=== PATIENT | female | born 1955 | race Native Hawaiian/Other Pacific Islander ===

== ENCOUNTER 2019-09-14 18:03 | Observation (INO) | payer MEDICARE ==
[2019-09-14] MEDS ORDERED: Sodium Chloride 0.9% 1000 ML 1,000 ML IV STA (18:17)
[2019-09-14] MEDS ORDERED: MORPHINE SULFATE 4 MG INJ IV ONE (18:17)
[2019-09-14] MEDS ORDERED: Zofran 4 MG/2 ML VIAL IV ONE (18:17)
[2019-09-14] MEDS ORDERED: TORAdol 30 mg Injection IV ONE (18:17)
[2019-09-14] MEDS ORDERED: TORAdol 30 mg Injection ONE (18:39)
[2019-09-14] MEDS ORDERED: Sodium Chloride 0.9% 1000 ML 1,000 ML ONE (18:39)
[2019-09-14] MEDS ORDERED: MORPHINE SULFATE 4 MG INJ ONE (18:39)
[2019-09-14] MEDS ORDERED: Zofran 4 MG/2 ML VIAL ONE (18:39)
[2019-09-14 18:54] LABS: Absolute Neutrophil Ct (ANC) 5.43 (1.4-6.9); Basophil (Absolute #) 0 (0-0.4); Eosinophil % 0.2 % (0.00-5.0); Eosinophil (Absolute #) 0.01 (0-0.5); Hematocrit 42.4 % (35-47); Hemoglobin 13.9 gm/dl (12.0-16.0); Lymphocyte (Absolute #) 0.14 (1.0-4.6); Lymphocytes % 2.5 % (24.0-44.0); Mean Cell Volume 87.4 fl (78-100); Mean Corpuscular Hemoglobin 28.7 pg (26-32); Mean Corpuscular Hgb Concent. 32.8 g/dl (32-36); Mean Platelet Volume 12.2 fl (6-9.5); Monocyte (Absolute #) 0.03 (0.0-1.3); Monocytes % 0.5 % (0.0-12.0); Neutrophil % 96.8 % (36.0-66.0); Platelet Count 140 K/mm3 (150-450); Red Blood Count 4.85 M/mm3 (4.1-5.4); White Blood Count 5.6 K/mm3 (4.0-10.5)
[2019-09-14 19:02] LABS: Lactic Acid 2.5 (0.4-2.0)
[2019-09-14 19:06] LABS: ALBUMIN 4.1 g/dL (3.5-5.0); ALKALINE PHOSPHATASE 67 U/L (38-126); ANION GAP 11.4 MEQ/L (5-15); BLOOD UREA NITROGEN 25 mg/dL (7-17); CHLORIDE 107 mmol/L (98-107); Calcium 10.1 mg/dL (8.4-10.2); Carbon Dioxide 27 mmol/L (22-30); Glucose 156 mg/dL (74-106); LIPASE 51 U/L (23-300); Potassium 4.1 mmol/L (3.5-5.1); SGOT/AST 29 U/L (14-36); SGPT/ALT 19 U/L (0-35); SODIUM 141 mmol/L (137-145); Total Protein 7.1 g/dL (6.3-8.2)
[2019-09-14 20:18] LABS: Appearance CLOUDY (CLEAR); Bacteria RARE /HPF (NEGATIVE); Bilirubin NEGATIVE (NEGATIVE); Blood LARGE Ery/ul (0-5); Epithelial Cells RARE /HPF (FEW); Glucose NEGATIVE (NEGATIVE); Ketones SMALL (NEGATIVE); Leukocyte Esterase MODERATE (NEGATIVE); Mucus SLIGHT /HPF (NEGATIVE); Nitrite POSITIVE (NEGATIVE); Protein,Urine Dip 30 (Negative); Specific Gravity 1.036 (1.005-1.025); Urobilinogen NEGATIVE mg/dL (0-1); WBC >100 /HPF (0-5)
[2019-09-14 20:46] LABS: Budding Yeast Many /HPF (NEGATIVE); RBC >101 /HPF (0-2)
[2019-09-14] MEDS ORDERED: ROCEPHIN 2 Gm-D5w 50ML BAG** 2 G/50 ML IVPB IV STA (21:11)
--- NOTE | 2019-09-14 21:12 | ERPHSYRPT ---
- History of Present Illness Time Seen by Provider: 09/14/19 18:08 Patient Subjective Stated Complaint: Pt woke this morning and had blood in her urine, went to hospital in [place] and had a CT scan done and was found to have a mass on her left kidney compatible with renal cell carcinoma, pt was given pain meds and all her records were sent to [place] and was told that if she was in pain again to go to [facility], she began having pain and attempted to drive to [facility] from [place] but began having 10/10 pain and came to this ER instead Triage Nursing Assessment: Pt was brought from EMS, hypertensive with no history , pain was a 10/10 in ambulance but was given Morphine and it is now a 5/10, pulses normal, pt states that she is unable to urinate since 1500, no edema, lungs clear, pt is resting with eyes closed at this time Physician History: Left flank pain. Worsening this afternoon. Location: left flank pain Quality: sharp Radiation: none Severity: moderate Duration: worse today Timing: suddenly Modifying factors/associated signs and symptoms: recently dx with renal cell carcinoma Allergies/Adverse Reactions: No Known Drug Allergies Allergy (Verified 09/14/19 18:29) Home Medications: Glipizide [Glipizide Xl] 5 mg PO DAILY 09/14/19 [History] Lisinopril 10 mg [Zestril 10 MG] 10 mg PO DAILY 09/14/19 [History] Lovastatin 10 mg PO DAILY 09/14/19 [History] Metformin HCl 500 mg [Glucophage 500 MG] 500 mg PO BIDWM 09/14/19 [History ] Morphine Sulfate Ir 15 mg [Msir 15 mg] 0.5 - 1 tab PO Q6H PRN 09/14/19 [ History] Ondansetron [Ondansetron Odt] 4 mg PO Q8H PRN 09/14/19 [History] - Review of Systems Constitutional: No Fever, No Chills Eyes: No Symptoms Ears, Nose, & Throat: No Symptoms Respiratory: No Cough, No Dyspnea Cardiac: No Chest Pain, No Edema, No Syncope Abdominal/Gastrointestinal: Abdominal Pain, No Nausea, No Vomiting, No Diarrhea Genitourinary Symptoms: No Dysuria Musculoskeletal: No Back Pain, No Neck Pain Skin: No Rash Neurological: No Dizziness, No Focal Weakness, No Sensory Changes Psychological: No Symptoms Endocrine: No Symptoms All Other Systems: Reviewed and Negative - Past Medical History Cardiac History: High Cholesterol Endocrine Medical History: Diabetes Type II - Past Surgical History Past Surgical History: No - Social History Smoking Status: Never smoker Exposure to second hand smoke: No Drug Use: none Patient Lives Alone: No - Female History Hx Now: No - Nursing Vital Signs Nursing Vital Signs: Initial Vital Signs Temperature 97.4 F 09/14/19 18:05 Pulse Rate 101 H 09/14/19 18:05 Blood Pressure 207/113 09/14/19 18:05 O2 Sat by Pulse Oximetry 97 09/14/19 18:05 Pain Scale Pain Intensity [Right Lower 5 Abdomen] Pain Intensity 3 - Physical Exam General Appearance: no apparent distress, alert Eye Exam: PERRL/EOMI, eyes nml inspection Ears, Nose, Throat Exam: normal ENT inspection, pharynx normal, moist mucous membranes Neck Exam: normal inspection, non-tender, supple, full range of motion Respiratory Exam: normal breath sounds, lungs clear, No respiratory distress Cardiovascular Exam: regular rate/rhythm, normal heart sounds Gastrointestinal/Abdomen Exam: soft, other (no obvious mass or tenderness ), No tenderness, No mass Back Exam: normal inspection, normal range of motion, No CVA tenderness, No vertebral tenderness Extremity Exam: normal inspection, normal range of motion, pelvis stable Neurologic Exam: alert, oriented x 3, cooperative, normal mood/affect, nml cerebellar function, sensation nml, No motor deficits Skin Exam: normal color, warm, dry SpO2: 96 - Course Nursing assessment & vital signs reviewed: Yes Ordered Tests: Active Orders 24 hr Category Date Time Status IV Insertion STAT Care 09/14/19 18:17 Active CBC W DIFF Stat Lab 09/14/19 18:57 Completed CMP Stat Lab 09/14/19 18:57 Completed CULTURE,URINE Stat Lab 09/14/19 20:02 Received LIPASE Stat Lab 09/14/19 18:57 Completed Lactic Acid Stat Lab 09/14/19 18:51 Completed Lactic Acid Stat Lab 09/14/19 20:59 Ordered UA W/RFX UR CULTURE Stat Lab 09/14/19 20:02 Completed Transfer Order Routine Transfer 09/14/19 Ordered Medication Summary Generic Name Dose Route Start Last Admin Trade Name Freq PRN Reason Stop Dose Admin Ceftriaxone Sodium/Dextrose 2 g in 50 mls @ 100 mls/hr 09/14/19 21:11 Rocephin 2 Gm-D5w 50ml Bag IV 09/14/19 21:40 STAT STA Discontinued Medications Generic Name Dose Route Start Last Admin Trade Name Liset PRN Reason Stop Dose Admin Sodium Chloride 1,000 mls @ 999 mls/hr 09/14/19 18:17 09/14/19 20:00 Sodium Chloride 0.9% 1000 Ml IV 09/14/19 19:17 Infused .Q1H1M STA Infusion Sodium Chloride Confirm 09/14/19 18:39 Sodium Chloride 0.9% 1000 Ml Administered 09/14/19 18:40 Dose 1,000 mls @ ud .ROUTE .STK-MED ONE Ketorolac Tromethamine 30 mg 09/14/19 18:17 09/14/19 18:43 Toradol 30 Mg Injection IV 09/14/19 18:18 30 mg STAT ONE Administration Ketorolac Tromethamine Confirm 09/14/19 18:39 Toradol 30 Mg Injection Administered 09/14/19 18:40 Dose 30 mg .ROUTE .STK-MED ONE Morphine Sulfate 4 mg 09/14/19 18:17 09/14/19 18:42 Morphine Sulfate 4 Mg Inj IV 09/14/19 18:18 4 mg STAT ONE Administration Morphine Sulfate Confirm 09/14/19 18:39 Morphine Sulfate 4 Mg Inj Administered 09/14/19 18:40 Dose 4 mg .ROUTE .STK-MED ONE Ondansetron HCl 4 mg 09/14/19 18:17 09/14/19 18:43 Zofran 4 Mg/2 Ml Vial IV 09/14/19 18:18 4 mg STAT ONE Administration Ondansetron HCl Confirm 09/14/19 18:39 Zofran 4 Mg/2 Ml Vial Administered 09/14/19 18:40 Dose 4 mg .ROUTE .STK-MED ONE Lab/Rad Data: Laboratory Result Diagrams 09/14/19 18:57 09/14/19 18:57 Laboratory Results 09/14/19 09/14/19 09/14/19 Range/Units 20:02 18:57 18:57 WBC 5.6 (4.0-10.5) K/mm3 RBC 4.85 (4.1-5.4) M/mm3 Hgb 13.9 (12.0-16.0) gm/dl Hct 42.4 (35-47) % MCV 87.4 (78-100) fl MCH 28.7 (26-32) pg MCHC 32.8 (32-36) g/dl RDW 15.0 H (11.5-14.0) % Plt Count 140 L (150-450) K/mm3 MPV 12.2 H (6-9.5) fl Gran % 96.8 H (36.0-66.0) % Eos # (Auto) 0.01 (0-0.5) Absolute Lymphs (auto) 0.14 L (1.0-4.6) Absolute Monos (auto) 0.03 (0.0-1.3) Lymphocytes % 2.5 L (24.0-44.0) % Monocytes % 0.5 (0.0-12.0) % Eosinophils % 0.2 (0.00-5.0) % Basophils % 0.0 (0.0-0.4) % Absolute Granulocytes 5.43 (1.4-6.9) Basophils # 0 (0-0.4) Sodium 141 (137-145) mmol/L Potassium 4.1 (3.5-5.1) mmol/L Chloride 107 (98-107) mmol/L Carbon Dioxide 27 (22-30) mmol/L Anion Gap 11.4 (5-15) MEQ/L BUN 25 H (7-17) mg/dL Creatinine 0.80 (0.52-1.04) mg/dL Estimated GFR > 60.0 ML/MIN Glucose 156 H (74-106) mg/dL Lactic Acid (0.4-2.0) Calcium 10.1 (8.4-10.2) mg/dL Total Bilirubin 0.70 (0.2-1.3) mg/dL AST 29 (14-36) U/L ALT 19 (0-35) U/L Alkaline Phosphatase 67 (38-126) U/L Serum Total Protein 7.1 (6.3-8.2) g/dL Albumin 4.1 (3.5-5.0) g/dL Lipase 51 (23-300) U/L Urine Color YELLOW (YELLOW) Urine Appearance CLOUDY (CLEAR) Urine pH 5.0 (5-6) Ur Specific [place] 1.036 (1.005-1.025) Urine Protein 30 (Negative) Urine Ketones SMALL (NEGATIVE) Urine Blood LARGE (0-5) [place]/ul Urine Nitrite POSITIVE (NEGATIVE) Urine Bilirubin NEGATIVE (NEGATIVE) Urine Urobilinogen NEGATIVE (0-1) mg/dL Ur Leukocyte Esterase MODERATE (NEGATIVE) Urine WBC (Auto) >100 (0-5) /HPF Urine RBC (Auto) >101 (0-2) /HPF U Epithel Cells (Auto) RARE (FEW) /HPF Urine Bacteria (Auto) RARE (NEGATIVE) /HPF Urine Mucus (Auto) SLIGHT (NEGATIVE) /HPF Urine Yeast (Budding) Many (NEGATIVE) /HPF Urine Culture Reflexed YES (NO) Urine Glucose NEGATIVE (NEGATIVE) mg/dL 09/14/19 Range/Units 18:51 WBC (4.0-10.5) K/mm3 RBC (4.1-5.4) M/mm3 Hgb (12.0-16.0) gm/dl Hct (35-47) % MCV (78-100) fl MCH (26-32) pg MCHC (32-36) g/dl RDW (11.5-14.0) % Plt Count (150-450) K/mm3 MPV (6-9.5) fl Gran % (36.0-66.0) % Eos # (Auto) (0-0.5) Absolute Lymphs (auto) (1.0-4.6) Absolute Monos (auto) (0.0-1.3) Lymphocytes % (24.0-44.0) % Monocytes % (0.0-12.0) % Eosinophils % (0.00-5.0) % Basophils % (0.0-0.4) % Absolute Granulocytes (1.4-6.9) Basophils # (0-0.4) Sodium (137-145) mmol/L Potassium (3.5-5.1) mmol/L Chloride (98-107) mmol/L Carbon Dioxide (22-30) mmol/L Anion Gap (5-15) MEQ/L BUN (7-17) mg/dL Creatinine (0.52-1.04) mg/dL Estimated GFR ML/MIN Glucose (74-106) mg/dL Lactic Acid 2.5 H (0.4-2.0) Calcium (8.4-10.2) mg/dL Total Bilirubin (0.2-1.3) mg/dL AST (14-36) U/L ALT (0-35) U/L Alkaline Phosphatase (38-126) U/L Serum Total Protein (6.3-8.2) g/dL Albumin (3.5-5.0) g/dL Lipase (23-300) U/L Urine Color (YELLOW) Urine Appearance (CLEAR) Urine pH (5-6) Ur Specific [place] (1.005-1.025) Urine Protein (Negative) Urine Ketones (NEGATIVE) Urine Blood (0-5) [place]/ul Urine Nitrite (NEGATIVE) Urine Bilirubin (NEGATIVE) Urine Urobilinogen (0-1) mg/dL Ur Leukocyte Esterase (NEGATIVE) Urine WBC (Auto) (0-5) /HPF Urine RBC (Auto) (0-2) /HPF U Epithel Cells (Auto) (FEW) /HPF Urine Bacteria (Auto) (NEGATIVE) /HPF Urine Mucus (Auto) (NEGATIVE) /HPF Urine Yeast (Budding) (NEGATIVE) /HPF Urine Culture Reflexed (NO) Urine Glucose (NEGATIVE) mg/dL - Progress Progress: improved Progress Note: 09/14/19 21:17 Patient has probably new renal cell carcinoma. Patient's pain improved here in the ER. She does have a UTI. We will give first dose of ceftriaxone here in the ER. I discussed with Dr. Sharma. She will admit to her service for UTI and pain control Discussed with .: Tasha Will see patient in: hospital (observation) Counseled pt/family regarding: lab results, diagnosis, need for follow-up - Departure Departure Disposition: Observation Clinical Impression: UTI (urinary tract infection) Condition: Stable Critical Care Time: No Referrals: DAKSHA BAKER JR [Primary Care Provider] -
[2019-09-14] MEDS ORDERED: TORAdol 30 mg Injection IV PRN (22:07)
[2019-09-14] MEDS: Sodium Chloride 0.9% 1000 ML 1,000 ML IV SCH (22:36)
[2019-09-14] MEDS: MORPHINE SULFATE 4 MG INJ IV PRN (22:42)
[2019-09-15 00:16] LABS: Slide Review 1 YES
[2019-09-15 05:11] LABS: ALBUMIN 3.3 g/dL (3.5-5.0); ANION GAP 10.7 MEQ/L (5-15); BILIRUBIN,TOTAL 0.4 mg/dL (0.2-1.3); Calcium 9.3 mg/dL (8.4-10.2); Potassium 3.8 mmol/L (3.5-5.1)
[2019-09-15 05:12] LABS: Hematocrit 37.7 % (35-47); Hemoglobin 12.4 gm/dl (12.0-16.0); Mean Cell Volume 88.9 fl (78-100); Mean Corpuscular Hemoglobin 29.2 pg (26-32); Mean Corpuscular Hgb Concent. 32.9 g/dl (32-36); Mean Platelet Volume 12.9 fl (6-9.5); Platelet Count 137 K/mm3 (150-450); Red Blood Count 4.24 M/mm3 (4.1-5.4); Red Cell Distribution Width 15.6 % (11.5-14.0); White Blood Count 23.5 K/mm3 (4.0-10.5)
[2019-09-15] MEDS: MORPHINE SULFATE 4 MG INJ IV PRN ×3 (07:58→19:39)
[2019-09-15] MEDS: Zofran 4 MG/2 ML VIAL IV PRN ×2 (08:05→19:56)
[2019-09-15 08:13] LABS: BAND 20 % (0.0-2.0); Lymphocytes 2 % (24-44); Monocyte 2 % (0.0-12.0); Neutrophils 76 % (36.0-66.0); Total Cells Counted 100
[2019-09-15 08:17] LABS: Platelet Estimate DECREASED (NORMAL); Polychromasia 1+; Toxic Granulation 1+
[2019-09-15] MEDS: Sodium Chloride 0.9% 1000 ML 1,000 ML IV SCH (09:28)
[2019-09-15] MEDS ORDERED: ROCEPHIN 2 Gm-D5w 50ML BAG** 2 G/50 ML IVPB IV ONE (09:45)
[2019-09-15] MEDS ORDERED: PHENERGAN 25 MG PO PRN (09:59)
[2019-09-15] MEDS ORDERED: Sodium Chloride 0.9% W/ 20 mEq KCl/LITER 1,000 ML IV SCH (10:15)
[2019-09-15] MEDS ORDERED: NovoLOG Insulin SQ PRN (10:24)
[2019-09-15] MEDS ORDERED: ROCEPHIN 1 Gm-D5w 50 ml Bag** 1 G/50 ML IVPB IV SCH (10:30)
--- NOTE | 2019-09-15 15:26 | PCM.SSS ---
History of Present Illness - Chief Complaint Chief Complaint: UTI; Acute Pain History of Present Illness: is a 64 year old female who was admitted from ER for pain control. She was on her way from [facility] ER where she was found to have left renal mass and blood clot in ureter .She was is too much pain to ride all the way to [place]. - Review of Systems Constitutional: Fatigue Ears, Nose, & Throat: No Symptoms Respiratory: No Symptoms Cardiac: No Symptoms Abdominal/Gastrointestinal: Abdominal Pain, Other (LLQ L flank) Genitourinary Symptoms: Hematuria Neurological: No Symptoms Psychological: No Symptoms Endocrine: Other (DM2) Medications & Allergies Home Medications: Home Medication List Glipizide [Glipizide Xl] 5 mg PO DAILY 09/14/19 [History Confirmed 09/14/19] Lisinopril 10 mg [Zestril 10 MG] 10 mg PO DAILY 09/14/19 [History Confirmed 09/14/19] Lovastatin 10 mg PO HS 09/14/19 [History Confirmed 09/14/19] Metformin HCl 500 mg [Glucophage 500 MG] 500 mg PO BIDWM 09/14/19 [ History Confirmed 09/14/19] Morphine Sulfate Ir 15 mg [Msir 15 mg] 0.5 - 1 tab PO Q6H PRN 09/14/19 [ History Confirmed 09/14/19] Ondansetron [Ondansetron Odt] 4 mg PO Q8H PRN 09/14/19 [History Confirmed ] Allergies/Adverse Reactions: Allergies Allergy/AdvReac Type Severity Reaction Status Date / Time No Known Drug Allergies Allergy Verified 09/14/19 18:29 - Past Medical History Past Medical History: Yes Neurological History: No Pertinent History ENT History: No Pertinent History Cardiac History: No Pertinent History Respiratory History: No Pertinent History Endocrine Medical History: Diabetes Type II Musculoskelatal History: Arthritis GI Medical History: No Pertinent History History: Other Pyscho-Social History: No Pertinent History Reproductive Disorders: No Pertinent History Comment: lt kidney tumor present - Female History Are you now?: No - Past Surgical History Past Surgical History: No - Social History Smoking Status: Never smoker Exposure to second hand smoke: No Alcohol: None Drug Use: none - Physical Exam Vital Signs: Vital Signs - 24 hr Temp Pulse Resp BP Pulse Ox 09/15/19 12:48 99 09/15/19 12:00 99.4 F 83 18 135/60 94 L 09/15/19 08:00 97.3 F 81 19 128/60 99 09/15/19 04:00 98 F 78 18 123/57 93 L 09/14/19 22:41 97.4 F 80 16 113/55 96 09/14/19 21:18 96 09/14/19 20:40 83 17 119/58 96 09/14/19 19:50 84 18 143/70 96 09/14/19 19:34 87 18 158/80 94 L 09/14/19 18:05 97.4 F 101 H 207/113 97 Oxygen-Last 24 hours O2 Percentage 3 Liters = 32% O2 Percentage 3 Liters = 32% O2 Percentage 3 Liters = 32% General Appearance: moderate distress (left flank pain releived with Morphine for about 2 hours) Neurologic Exam: alert, oriented x 3, cooperative Ears, Nose, Throat Exam: normal ENT inspection Neck Exam: normal inspection Respiratory Exam: normal breath sounds Cardiovascular Exam: regular rate/rhythm Gastrointestinal/Abdomen Exam: soft, normal bowel sounds, tenderness (LLQ left flank left CVA), guarding Pelvic Exam: not done Rectal Exam: deferred Extremity Exam: normal inspection Skin Exam: normal color, warm (moist forehead) Results - Labs Lab/Micro Results: Lab Results-Last 24 Hours 09/14/19 09/14/19 09/14/19 Range/Units 18:51 18:57 18:57 WBC 5.6 (4.0-10.5) K/mm3 RBC 4.85 (4.1-5.4) M/mm3 Hgb 13.9 (12.0-16.0) gm/dl Hct 42.4 (35-47) % MCV 87.4 (78-100) fl MCH 28.7 (26-32) pg MCHC 32.8 (32-36) g/dl RDW 15.0 H (11.5-14.0) % Plt Count 140 L (150-450) K/mm3 MPV 12.2 H (6-9.5) fl Gran % 96.8 H (36.0-66.0) % Eos # (Auto) 0.01 (0-0.5) Absolute Lymphs (auto) 0.14 L (1.0-4.6) Absolute Monos (auto) 0.03 (0.0-1.3) Lymphocytes % 2.5 L (24.0-44.0) % Monocytes % 0.5 (0.0-12.0) % Eosinophils % 0.2 (0.00-5.0) % Basophils % 0.0 (0.0-0.4) % Absolute Granulocytes 5.43 (1.4-6.9) Segmented Neutrophils (36.0-66.0) % Band Neutrophils (0.0-2.0) % Lymphocytes (Manual) (24-44) % Monocytes (Manual) (0.0-12.0) % Basophils # 0 (0-0.4) Toxic Granulation Platelet Estimate (NORMAL) RBC Morphology Polychromasia Sodium 141 (137-145) mmol/L Potassium 4.1 (3.5-5.1) mmol/L Chloride 107 (98-107) mmol/L Carbon Dioxide 27 (22-30) mmol/L Anion Gap 11.4 (5-15) MEQ/L BUN 25 H (7-17) mg/dL Creatinine 0.80 (0.52-1.04) mg/dL Estimated GFR > 60.0 ML/MIN Glucose 156 H (74-106) mg/dL Lactic Acid 2.5 H (0.4-2.0) Calcium 10.1 (8.4-10.2) mg/dL Total Bilirubin 0.70 (0.2-1.3) mg/dL AST 29 (14-36) U/L ALT 19 (0-35) U/L Alkaline Phosphatase 67 (38-126) U/L Serum Total Protein 7.1 (6.3-8.2) g/dL Albumin 4.1 (3.5-5.0) g/dL Lipase 51 (23-300) U/L Urine Color (YELLOW) Urine Appearance (CLEAR) Urine pH (5-6) Ur Specific Dale (1.005-1.025) Urine Protein (Negative) Urine Ketones (NEGATIVE) Urine Blood (0-5) Braeden/ul Urine Nitrite (NEGATIVE) Urine Bilirubin (NEGATIVE) Urine Urobilinogen (0-1) mg/dL Ur Leukocyte Esterase (NEGATIVE) Urine WBC (Auto) (0-5) /HPF Urine RBC (Auto) (0-2) /HPF U Epithel Cells (Auto) (FEW) /HPF Urine Bacteria (Auto) (NEGATIVE) /HPF Urine Mucus (Auto) (NEGATIVE) /HPF Urine Yeast (Budding) (NEGATIVE) /HPF Urine Culture Reflexed (NO) Urine Glucose (NEGATIVE) mg/dL Slides for Path Review YES 09/14/19 09/15/19 09/15/19 Range/Units 20:02 04:54 05:00 WBC 23.5 H (4.0-10.5) K/mm3 RBC 4.24 (4.1-5.4) M/mm3 Hgb 12.4 (12.0-16.0) gm/dl Hct 37.7 (35-47) % MCV 88.9 (78-100) fl MCH 29.2 (26-32) pg MCHC 32.9 (32-36) g/dl RDW 15.6 H (11.5-14.0) % Plt Count 137 L (150-450) K/mm3 MPV 12.9 H (6-9.5) fl Gran % (36.0-66.0) % Eos # (Auto) (0-0.5) Absolute Lymphs (auto) (1.0-4.6) Absolute Monos (auto) (0.0-1.3) Lymphocytes % (24.0-44.0) % Monocytes % (0.0-12.0) % Eosinophils % (0.00-5.0) % Basophils % (0.0-0.4) % Absolute Granulocytes (1.4-6.9) Segmented Neutrophils 76 H (36.0-66.0) % Band Neutrophils 20 H (0.0-2.0) % Lymphocytes (Manual) 2 L (24-44) % Monocytes (Manual) 2 (0.0-12.0) % Basophils # (0-0.4) Toxic Granulation 1+ Platelet Estimate DECREASED (NORMAL) RBC Morphology ABNORMAL Polychromasia 1+ Sodium (137-145) mmol/L Potassium (3.5-5.1) mmol/L Chloride (98-107) mmol/L Carbon Dioxide (22-30) mmol/L Anion Gap (5-15) MEQ/L BUN (7-17) mg/dL Creatinine (0.52-1.04) mg/dL Estimated GFR ML/MIN Glucose (74-106) mg/dL Lactic Acid 1.4 (0.4-2.0) Calcium (8.4-10.2) mg/dL Total Bilirubin (0.2-1.3) mg/dL AST (14-36) U/L ALT (0-35) U/L Alkaline Phosphatase (38-126) U/L Serum Total Protein (6.3-8.2) g/dL Albumin (3.5-5.0) g/dL Lipase (23-300) U/L Urine Color YELLOW (YELLOW) Urine Appearance CLOUDY (CLEAR) Urine pH 5.0 (5-6) Ur Specific Dale 1.036 (1.005-1.025) Urine Protein 30 (Negative) Urine Ketones SMALL (NEGATIVE) Urine Blood LARGE (0-5) Braeden/ul Urine Nitrite POSITIVE (NEGATIVE) Urine Bilirubin NEGATIVE (NEGATIVE) Urine Urobilinogen NEGATIVE (0-1) mg/dL Ur Leukocyte Esterase MODERATE (NEGATIVE) Urine WBC (Auto) >100 (0-5) /HPF Urine RBC (Auto) >101 (0-2) /HPF U Epithel Cells (Auto) RARE (FEW) /HPF Urine Bacteria (Auto) RARE (NEGATIVE) /HPF Urine Mucus (Auto) SLIGHT (NEGATIVE) /HPF Urine Yeast (Budding) Many (NEGATIVE) /HPF Urine Culture Reflexed YES (NO) Urine Glucose NEGATIVE (NEGATIVE) mg/dL Slides for Path Review 09/15/19 Range/Units 05:00 WBC (4.0-10.5) K/mm3 RBC (4.1-5.4) M/mm3 Hgb (12.0-16.0) gm/dl Hct (35-47) % MCV (78-100) fl MCH (26-32) pg MCHC (32-36) g/dl RDW (11.5-14.0) % Plt Count (150-450) K/mm3 MPV (6-9.5) fl Gran % (36.0-66.0) % Eos # (Auto) (0-0.5) Absolute Lymphs (auto) (1.0-4.6) Absolute Monos (auto) (0.0-1.3) Lymphocytes % (24.0-44.0) % Monocytes % (0.0-12.0) % Eosinophils % (0.00-5.0) % Basophils % (0.0-0.4) % Absolute Granulocytes (1.4-6.9) Segmented Neutrophils (36.0-66.0) % Band Neutrophils (0.0-2.0) % Lymphocytes (Manual) (24-44) % Monocytes (Manual) (0.0-12.0) % Basophils # (0-0.4) Toxic Granulation Platelet Estimate (NORMAL) RBC Morphology Polychromasia Sodium 143 (137-145) mmol/L Potassium 3.8 (3.5-5.1) mmol/L Chloride 109 H (98-107) mmol/L Carbon Dioxide 26 (22-30) mmol/L Anion Gap 10.7 (5-15) MEQ/L BUN 29 H (7-17) mg/dL Creatinine 1.00 (0.52-1.04) mg/dL Estimated GFR 59.0 ML/MIN Glucose 174 H (74-106) mg/dL Lactic Acid (0.4-2.0) Calcium 9.3 (8.4-10.2) mg/dL Total Bilirubin 0.40 (0.2-1.3) mg/dL AST 26 (14-36) U/L ALT 16 (0-35) U/L Alkaline Phosphatase 45 (38-126) U/L Serum Total Protein 6.0 L (6.3-8.2) g/dL Albumin 3.3 L (3.5-5.0) g/dL Lipase (23-300) U/L Urine Color (YELLOW) Urine Appearance (CLEAR) Urine pH (5-6) Ur Specific Dale (1.005-1.025) Urine Protein (Negative) Urine Ketones (NEGATIVE) Urine Blood (0-5) Braeden/ul Urine Nitrite (NEGATIVE) Urine Bilirubin (NEGATIVE) Urine Urobilinogen (0-1) mg/dL Ur Leukocyte Esterase (NEGATIVE) Urine WBC (Auto) (0-5) /HPF Urine RBC (Auto) (0-2) /HPF U Epithel Cells (Auto) (FEW) /HPF Urine Bacteria (Auto) (NEGATIVE) /HPF Urine Mucus (Auto) (NEGATIVE) /HPF Urine Yeast (Budding) (NEGATIVE) /HPF Urine Culture Reflexed (NO) Urine Glucose (NEGATIVE) mg/dL Slides for Path Review - Other Procedures and Tests Respiratory Therapy 09/15/19 12:47 Oxygen Nasal Cannula 3 lpm Assessment/Plan (1) Acute flank pain Current Visit: Yes Status: Acute Assessment & Plan: clot in left ureter Code(s): R10.9 - UNSPECIFIED ABDOMINAL PAIN (2) Pyelonephritis of left kidney Current Visit: Yes Status: Acute Assessment & Plan: urine culture and blood cultures pending, IV Rocephin given 1 dose Code(s): N12 - TUBULO-INTERSTITIAL NEPHRITIS, NOT SPCF ACUTE OR CHRONIC Hospital Summary - Hospital Course Hospital Course: Patient was admitted for pain control after Dg left renal mass and blood clot in left ureter at [facility] ,[place], [place].AM labs showed significant elevation WBC. Blood cultures were drawn prior to giving Rocephin,urine cultures pending. Dr Tracy Waters Urologist accepted transfer to [facility]. Patient has had ice chips this morning but is NPO for possible stent on arrival per Dr Waters. - Vitals & Intake/Output Vital Signs: Vital Signs Temperature 99.4 F 09/15/19 12:00 Pulse Rate 83 09/15/19 12:00 Respiratory Rate 18 09/15/19 12:00 Blood Pressure 135/60 09/15/19 12:00 O2 Sat by Pulse Oximetry 99 09/15/19 12:48 Oxygen-Last Documented O2 Percentage 3 Liters = 32% Intake & Output: Intake & Output 09/13/19 09/14/19 09/15/19 09/16/19 11:59 11:59 11:59 11:59 Intake Total 854 Output Total 150 Balance 704 Weight 101.5 kg - Lab Result Diagrams: 09/15/19 05:00 09/15/19 05:00 Lab Results-Last 24 Hrs: Lab Results-Last 24 Hours 09/14/19 09/14/19 09/14/19 Range/Units 18:51 18:57 18:57 WBC 5.6 (4.0-10.5) K/mm3 RBC 4.85 (4.1-5.4) M/mm3 Hgb 13.9 (12.0-16.0) gm/dl Hct 42.4 (35-47) % MCV 87.4 (78-100) fl MCH 28.7 (26-32) pg MCHC 32.8 (32-36) g/dl RDW 15.0 H (11.5-14.0) % Plt Count 140 L (150-450) K/mm3 MPV 12.2 H (6-9.5) fl Gran % 96.8 H (36.0-66.0) % Eos # (Auto) 0.01 (0-0.5) Absolute Lymphs (auto) 0.14 L (1.0-4.6) Absolute Monos (auto) 0.03 (0.0-1.3) Lymphocytes % 2.5 L (24.0-44.0) % Monocytes % 0.5 (0.0-12.0) % Eosinophils % 0.2 (0.00-5.0) % Basophils % 0.0 (0.0-0.4) % Absolute Granulocytes 5.43 (1.4-6.9) Segmented Neutrophils (36.0-66.0) % Band Neutrophils (0.0-2.0) % Lymphocytes (Manual) (24-44) % Monocytes (Manual) (0.0-12.0) % Basophils # 0 (0-0.4) Toxic Granulation Platelet Estimate (NORMAL) RBC Morphology Polychromasia Sodium 141 (137-145) mmol/L Potassium 4.1 (3.5-5.1) mmol/L Chloride 107 (98-107) mmol/L Carbon Dioxide 27 (22-30) mmol/L Anion Gap 11.4 (5-15) MEQ/L BUN 25 H (7-17) mg/dL Creatinine 0.80 (0.52-1.04) mg/dL Estimated GFR > 60.0 ML/MIN Glucose 156 H (74-106) mg/dL Lactic Acid 2.5 H (0.4-2.0) Calcium 10.1 (8.4-10.2) mg/dL Total Bilirubin 0.70 (0.2-1.3) mg/dL AST 29 (14-36) U/L ALT 19 (0-35) U/L Alkaline Phosphatase 67 (38-126) U/L Serum Total Protein 7.1 (6.3-8.2) g/dL Albumin 4.1 (3.5-5.0) g/dL Lipase 51 (23-300) U/L Urine Color (YELLOW) Urine Appearance (CLEAR) Urine pH (5-6) Ur Specific Dale (1.005-1.025) Urine Protein (Negative) Urine Ketones (NEGATIVE) Urine Blood (0-5) Braeden/ul Urine Nitrite (NEGATIVE) Urine Bilirubin (NEGATIVE) Urine Urobilinogen (0-1) mg/dL Ur Leukocyte Esterase (NEGATIVE) Urine WBC (Auto) (0-5) /HPF Urine RBC (Auto) (0-2) /HPF U Epithel Cells (Auto) (FEW) /HPF Urine Bacteria (Auto) (NEGATIVE) /HPF Urine Mucus (Auto) (NEGATIVE) /HPF Urine Yeast (Budding) (NEGATIVE) /HPF Urine Culture Reflexed (NO) Urine Glucose (NEGATIVE) mg/dL Slides for Path Review YES 09/14/19 09/15/19 09/15/19 Range/Units 20:02 04:54 05:00 WBC 23.5 H (4.0-10.5) K/mm3 RBC 4.24 (4.1-5.4) M/mm3 Hgb 12.4 (12.0-16.0) gm/dl Hct 37.7 (35-47) % MCV 88.9 (78-100) fl MCH 29.2 (26-32) pg MCHC 32.9 (32-36) g/dl RDW 15.6 H (11.5-14.0) % Plt Count 137 L (150-450) K/mm3 MPV 12.9 H (6-9.5) fl Gran % (36.0-66.0) % Eos # (Auto) (0-0.5) Absolute Lymphs (auto) (1.0-4.6) Absolute Monos (auto) (0.0-1.3) Lymphocytes % (24.0-44.0) % Monocytes % (0.0-12.0) % Eosinophils % (0.00-5.0) % Basophils % (0.0-0.4) % Absolute Granulocytes (1.4-6.9) Segmented Neutrophils 76 H (36.0-66.0) % Band Neutrophils 20 H (0.0-2.0) % Lymphocytes (Manual) 2 L (24-44) % Monocytes (Manual) 2 (0.0-12.0) % Basophils # (0-0.4) Toxic Granulation 1+ Platelet Estimate DECREASED (NORMAL) RBC Morphology ABNORMAL Polychromasia 1+ Sodium (137-145) mmol/L Potassium (3.5-5.1) mmol/L Chloride (98-107) mmol/L Carbon Dioxide (22-30) mmol/L Anion Gap (5-15) MEQ/L BUN (7-17) mg/dL Creatinine (0.52-1.04) mg/dL Estimated GFR ML/MIN Glucose (74-106) mg/dL Lactic Acid 1.4 (0.4-2.0) Calcium (8.4-10.2) mg/dL Total Bilirubin (0.2-1.3) mg/dL AST (14-36) U/L ALT (0-35) U/L Alkaline Phosphatase (38-126) U/L Serum Total Protein (6.3-8.2) g/dL Albumin (3.5-5.0) g/dL Lipase (23-300) U/L Urine Color YELLOW (YELLOW) Urine Appearance CLOUDY (CLEAR) Urine pH 5.0 (5-6) Ur Specific Dale 1.036 (1.005-1.025) Urine Protein 30 (Negative) Urine Ketones SMALL (NEGATIVE) Urine Blood LARGE (0-5) Braeden/ul Urine Nitrite POSITIVE (NEGATIVE) Urine Bilirubin NEGATIVE (NEGATIVE) Urine Urobilinogen NEGATIVE (0-1) mg/dL Ur Leukocyte Esterase MODERATE (NEGATIVE) Urine WBC (Auto) >100 (0-5) /HPF Urine RBC (Auto) >101 (0-2) /HPF U Epithel Cells (Auto) RARE (FEW) /HPF Urine Bacteria (Auto) RARE (NEGATIVE) /HPF Urine Mucus (Auto) SLIGHT (NEGATIVE) /HPF Urine Yeast (Budding) Many (NEGATIVE) /HPF Urine Culture Reflexed YES (NO) Urine Glucose NEGATIVE (NEGATIVE) mg/dL Slides for Path Review 09/15/19 Range/Units 05:00 WBC (4.0-10.5) K/mm3 RBC (4.1-5.4) M/mm3 Hgb (12.0-16.0) gm/dl Hct (35-47) % MCV (78-100) fl MCH (26-32) pg MCHC (32-36) g/dl RDW (11.5-14.0) % Plt Count (150-450) K/mm3 MPV (6-9.5) fl Gran % (36.0-66.0) % Eos # (Auto) (0-0.5) Absolute Lymphs (auto) (1.0-4.6) Absolute Monos (auto) (0.0-1.3) Lymphocytes % (24.0-44.0) % Monocytes % (0.0-12.0) % Eosinophils % (0.00-5.0) % Basophils % (0.0-0.4) % Absolute Granulocytes (1.4-6.9) Segmented Neutrophils (36.0-66.0) % Band Neutrophils (0.0-2.0) % Lymphocytes (Manual) (24-44) % Monocytes (Manual) (0.0-12.0) % Basophils # (0-0.4) Toxic Granulation Platelet Estimate (NORMAL) RBC Morphology Polychromasia Sodium 143 (137-145) mmol/L Potassium 3.8 (3.5-5.1) mmol/L Chloride 109 H (98-107) mmol/L Carbon Dioxide 26 (22-30) mmol/L Anion Gap 10.7 (5-15) MEQ/L BUN 29 H (7-17) mg/dL Creatinine 1.00 (0.52-1.04) mg/dL Estimated GFR 59.0 ML/MIN Glucose 174 H (74-106) mg/dL Lactic Acid (0.4-2.0) Calcium 9.3 (8.4-10.2) mg/dL Total Bilirubin 0.40 (0.2-1.3) mg/dL AST 26 (14-36) U/L ALT 16 (0-35) U/L Alkaline Phosphatase 45 (38-126) U/L Serum Total Protein 6.0 L (6.3-8.2) g/dL Albumin 3.3 L (3.5-5.0) g/dL Lipase (23-300) U/L Urine Color (YELLOW) Urine Appearance (CLEAR) Urine pH (5-6) Ur Specific Dale (1.005-1.025) Urine Protein (Negative) Urine Ketones (NEGATIVE) Urine Blood (0-5) Braeden/ul Urine Nitrite (NEGATIVE) Urine Bilirubin (NEGATIVE) Urine Urobilinogen (0-1) mg/dL Ur Leukocyte Esterase (NEGATIVE) Urine WBC (Auto) (0-5) /HPF Urine RBC (Auto) (0-2) /HPF U Epithel Cells (Auto) (FEW) /HPF Urine Bacteria (Auto) (NEGATIVE) /HPF Urine Mucus (Auto) (NEGATIVE) /HPF Urine Yeast (Budding) (NEGATIVE) /HPF Urine Culture Reflexed (NO) Urine Glucose (NEGATIVE) mg/dL Slides for Path Review - Procedures and Test Procedures and Tests throughout Hospitalization: Therapy Orders & Screens 09/15/19 12:47 Oxygen Nasal Cannula 3 lpm Comment: Diagnosis: UTI; Acute Pain - Discharge Disposition: Home, Self-Care Condition: Stable Prescriptions: No Action Morphine Sulfate Ir 15 mg [Msir 15 mg] 0.5 - 1 tab PO Q6H PRN PRN Reason: Pain Metformin HCl 500 mg [Glucophage 500 MG] 500 mg PO BIDWM Lovastatin 10 mg PO HS Lisinopril 10 mg [Zestril 10 MG] 10 mg PO DAILY Glipizide [Glipizide Xl] 5 mg PO DAILY Ondansetron [Ondansetron Odt] 4 mg PO Q8H PRN PRN Reason: Nausea Follow up with: DAKSHA BAKER JR [Primary Care Provider] - 1 Week
[2019-09-15 17:12] VITALS: BP 147/66; PULSE 89; O2SAT 96
== END 2019-09-15 19:55 ==
LOC: ED 18:03 → MED SURG 21:54
PROVIDERS: ADMIT Family Medicine; ATTEND Family Medicine
DX: R10.32 Left lower quadrant pain (principal); N12 Tubulo-interstitial nephritis, not specified as acute or chronic; N28.89 Other specified disorders of kidney and ureter; E11.9 Type 2 diabetes mellitus without complications; Z79.899 Other long term (current) drug therapy
CPT/HCPCS: 36000; 36415; 80053; 81001; 82962; 83036; 83605; 83690; 85025; 87040; 87086; 94760; 96360; 96374; 96375; 99285; G0378; 87077; 87186; J0696; J1885; J2270; J2405; A9270-GY